=== PATIENT | male | born 1960 | race African-American/Black ===

== ENCOUNTER 2017-05-22 09:18 | Observation (INO) | payer MEDICAID, MEDICARE ==
[~2017-05-22] VITALS: Ht 185.4 cm; Wt 90.7 kg
[2017-05-22] MEDS ORDERED: MORPHINE SULFATE 4 MG/ML CPJ (NOT FOR IM USE) IV STA (10:20)
[2017-05-22] MEDS ORDERED: ONDANSETRON HCL 4MG/2ML VIAL IV STA (10:20)
[2017-05-22 10:25] LABS: BASOPHILS % 1.2 % (0.0-2.0); EOSINOPHILS % 1.7 % (0.0-5.0); HEMOGLOBIN. 14.8 g/dL (14.0-18.0); LYMPHOCYTES % 30.6 % (20.0-50.0); MEAN CORPUSCULAR HEMOGLOBIN 29.3 pg (28.0-32.0); MEAN CORPUSCULAR VOLUME 87.3 fL (80.0-94.0); MEAN PLATELET VOLUME 7.8 fl (7.4-10.4); MONOCYTES % 6.9 % (2.0-8.0); NEUTROPHILS % 59.6 % (40.0-76.0); PLATELET 204 x1000/uL (130-400); RED BLOOD CELL COUNT 5.04 mill/uL (4.7-6.1); RED CELL DISTRIBUTION WIDTH 14.5 % (11.6-14.6)
[2017-05-22] MEDS ORDERED: ASPIRIN 325MG TABLET PO ONE (10:30)
[2017-05-22 10:34] LABS: CARBON DIOXIDE 27 mEq/L (21-32); CHLORIDE 107 mEq/L (98-107)
[2017-05-22 10:37] LABS: TROPONIN I < 0.02 ng/mL (0.00-0.04)
[2017-05-22 11:06] LABS: D-DIMER 1.06 mg/L FEU (<0.50); PROTHROMBIN TIME 10.2 sec
[2017-05-22] MEDS ORDERED: IOHEXOL-350 100 ML BOTTLE ONE (11:21)
[2017-05-22] MEDS ORDERED: SODIUM CHLORIDE 0.9% 10ML VIAL ONE (11:21)
[2017-05-22 20:00] VITALS: BP 138/77
[2017-05-22] MEDS ORDERED: BENA20TA3 PO (20:47)
[2017-05-22] MEDS ORDERED: OMEP20TA80 PO (20:47)
[2017-05-22] MEDS ORDERED: METF500T4 PO (20:47)
[2017-05-22] MEDS ORDERED: TAMS0.4C31 PO (20:47)
[2017-05-22] MEDS ORDERED: GABA-531 PO (20:47)
[2017-05-22] MEDS ORDERED: FLUO-124 PO (20:47)
[2017-05-22] MEDS ORDERED: LORA0.5T2 PO (20:47)
[2017-05-22] MEDS ORDERED: TEMAZEPAM 15MG CAPSULE PO PRN (21:00)
[2017-05-22] MEDS ORDERED: DEXTROSE 50% WATER 50ML SYRINGE IV PRN (21:00)
[2017-05-22] MEDS: BLOOD SUGAR DIAGNOSTIC STRIP TEST SCH (21:04)
[2017-05-22] MEDS: INSULIN LISPRO 100 UNITS/ML SUBCUT SCH (21:41)
[2017-05-22 23:48] LABS: *AMPHETAMINES SCREEN URINE NEGATIVE (NEGATIVE); *BARBITURATES SCREEN URINE NEGATIVE (NEGATIVE); *BENZODIAZEPINES SCREEN URINE NEGATIVE (NEGATIVE); *COCAINE SCREEN URINE PRESUMTIVE POSITIVE (NEGATIVE); CANNABINOID URINE SCREEN PRESUMTIVE POSITIVE (NEGATIVE); METHADONE URINE SCREEN NEGATIVE (NEGATIVE); OPIATES URINE SCREEN PRESUMTIVE POSITIVE (NEGATIVE); PHENCYCLIDINE URINE SCREEN NEGATIVE (NEGATIVE)
[2017-05-23] VITALS: BP 112/77
[2017-05-23 04:00] VITALS: BP 129/75
[2017-05-23] MEDS ORDERED: PANTOPRAZOLE 40MG DR TABLET PO SCH (06:45)
[2017-05-23] MEDS: BLOOD SUGAR DIAGNOSTIC STRIP TEST SCH ×2 (06:47→12:22)
[2017-05-23] MEDS: MORPHINE SULFATE 4 MG/ML CPJ (NOT FOR IM USE) IV PRN ×2 (06:48→12:24)
[2017-05-23] MEDS: INSULIN LISPRO 100 UNITS/ML SUBCUT SCH ×2 (06:57→12:15)
[2017-05-23 07:29] LABS: HDL CHOLESTEROL 43 mg/dL (40-59); LDL CHOLESTEROL 86 mg/dL (5-100)
[2017-05-23 07:59] LABS: TROPONIN I < 0.02 ng/mL (0.00-0.04)
[2017-05-23 08:00] VITALS: BP 145/81
[2017-05-23] MEDS ORDERED: TAMSULOSIN HCL 0.4MG SR CAPSULE PO SCH (09:00)
[2017-05-23] MEDS ORDERED: FAMOTIDINE 20MG TABLET PO SCH (09:00)
[2017-05-23] MEDS ORDERED: LOSARTAN POTASSIUM 50 MG TABLET PO SCH (09:00)
[2017-05-23] MEDS ORDERED: ASPIRIN 81MG TABLET PO SCH (09:00)
[2017-05-23] MEDS ORDERED: ENOXAPARIN 30MG/0.3ML SYR SUBCUT SCH (09:00)
[2017-05-23 12:00] VITALS: BP 119/66
[2017-05-23 14:55] VITALS: BP 119/63
[2017-05-23] MEDS ORDERED: ATORVASTATIN CALCIUM 20MG TABLET PO SCH (21:00)
== END 2017-05-23 15:16 | disposition home or self-care (01) ==
LOC: ER 09:19 → 5WST 15:10 → INTOOBSV 15:10 → ENRESERV 16:05
PROVIDERS: ADMIT Internal Medicine; ATTEND Internal Medicine
DX: I20.9 Angina pectoris, unspecified (principal); E11.40 Type 2 diabetes mellitus with diabetic neuropathy, unspecified; I10 Essential (primary) hypertension; F41.9 Anxiety disorder, unspecified; F17.210 Nicotine dependence, cigarettes, uncomplicated; I25.2 Old myocardial infarction; E78.00 Pure hypercholesterolemia, unspecified; E78.5 Hyperlipidemia, unspecified; Z86.73 Personal history of transient ischemic attack (TIA), and cerebral infarction without residual deficits
CPT/HCPCS: 36415; 71010; 71275; 73560; 80053; 80061; 80305; 82962; 83880; 84443; 84484; 85025; 85379; 85610; 93005; 93306; 96372; 96374; 96375; 96376; 99285; A4216; G0378; J1650; J1815; J2270; J2405; J7040; Q9967

== ENCOUNTER 2019-06-05 09:45 | Emergency (ER) | payer MEDICARE ==
[~2019-06-05] VITALS: Ht 185.4 cm; Wt 91.0 kg
[~2019-06-05 09:45] MED LIST: BENA20TA10 PO; FLUO-124 PO; GABA-531 PO; LORA0.5T2 PO; METF-414 PO; OMEP20TA2 PO; TAMS0.4C31 PO
[2019-06-05] MEDS ORDERED: TRAMADOL 50MG TABLET PO ONE (11:45)
[2019-06-05] MEDS ORDERED: HYDROCODONE/ACETAMINOPHEN 10/325MG TABLET PO ONE (13:30)
[2019-06-05 14:03] VITALS: BP 142/88
== END 2019-06-05 14:21 | disposition home or self-care (01) ==
LOC: ER 09:45
DX: G89.29 Other chronic pain (principal); M54.5 Low back pain; M79.642 Pain in left hand; M79.641 Pain in right hand; E11.9 Type 2 diabetes mellitus without complications; E78.00 Pure hypercholesterolemia, unspecified; Z87.438 Personal history of other diseases of male genital organs; Z79.899 Other long term (current) drug therapy; Z79.84 Long term (current) use of oral hypoglycemic drugs; Z86.73 Personal history of transient ischemic attack (TIA), and cerebral infarction without residual deficits; W01.10XA Fall on same level from slipping, tripping and stumbling with subsequent striking against unspecified object, initial encounter; Y93.01 Activity, walking, marching and hiking; Y92.480 Sidewalk as the place of occurrence of the external cause; Y99.8 Other external cause status
CPT/HCPCS: 72110; 99284